=== PATIENT | male | born 1970 | race Caucasian/White ===

== ENCOUNTER → 2019-12-04 14:03 | Outpatient (CLI) | payer MEDICAID, SELFPAY ==
[2019-12-06 08:38] LABS: Covid-19 Nasal PCR Sendout UK Not Detected
== END ==
PROVIDERS: PCP Internal Medicine Hematology & Oncology; Visit Provider Nurse Practitioner Family
DX: Z03.818 Encounter for observation for suspected exposure to other biological agents ruled out (principal)
CPT/HCPCS: U0003

== ENCOUNTER 2022-03-07 13:01 | Emergency (ER) | payer MEDICAID, SELFPAY ==
[2022-03-07 13:45] VITALS: BP 116/80; PULSE 73; RESP 18; TEMP 36.6; O2SAT 96; BMI 21.2
--- NOTE | 2022-03-07 15:05 | CT_ITS ---
PROCEDURE INFORMATION: Exam: CT Neck With Contrast Exam date and time: 03/07/2022 4:39 PM Age: 51 years old Clinical indication: Other: Swelling in right side of neck; Additional info: Right neck swelling, history of oral and rectal cancer, currently has lung cancer TECHNIQUE: Imaging protocol: Computed tomography of the neck with contrast. Radiation optimization: All CT scans at this facility use at least one of these dose optimization techniques: automated exposure control; mA and/or kV adjustment per patient size (includes targeted exams where dose is matched to clinical indication); or iterative reconstruction. Contrast material: ISOVUE; Contrast volume: 75 ml; Contrast route: IV; COMPARISON: No relevant prior studies or reports available. FINDINGS: Tubes, catheters and devices: Tunneled right jugular central venous catheter appears in satisfactory position with the tip in the superior vena cava above the right atrium on the dry roller topogram. Mastoid air cells: The left mastoid is not as well pneumatized as right, partially sclerotic and partially opacified, this is likely on a chronic basis rather than acute disease; no air-fluid level seen. Paranasal sinuses: No acute findings in the visualized sinuses. No significant sinus opacification or air-fluid levels. Minimal ethmoid mucosal thickening. Pharynx: There is slight deep soft tissue swelling in the posterior right nasopharynx, with effacement of the right fossa of Rosenmuller compared with left, but no discrete mass lesion or fluid collection. Oropharynx is unremarkable. No tonsillar enlargement or organizing peritonsillar abscess. No mass or fluid collection seen at the floor of mouth in this patient with history of oral cancer. Hypopharynx is unremarkable. Larynx: The larynx and epiglottis appear normal. Prevertebral and retropharyngeal spaces: Unremarkable. Salivary glands: Parotid and submandibular glands are unremarkable. Thyroid: The thyroid gland is normal. Lymph nodes: Possibly necrotic or suppurative enlarged right cervical nodes as discussed in the soft tissue section. There is also a 9 x 8 mm borderline enlarged right submandibular lymph node on series 3, image 59. A 1.7 cm ovoid calcified nodule superficial to the C5 process in the posterior neck, likely sequela of old trauma or chronic calcified lymph node series 1002, image 34. Trachea: The trachea is normal. Lungs: 1.7 cm posterior right upper lobe pulmonary nodule with spiculated margins and slight central cavitation suspicious for malignancy, correlate for the known lung cancer versus metastasis. Mild cystic emphysematous changes in the anterior lung apices. Some scattered ground-glass opacities in the anterior right upper lobe and superior segment of the right lower lobe, nonspecific, this could be pneumonia or edema. Bones/joints: Mild cervical spine degenerative changes with disc narrowing, spondylosis, multilevel facet arthropathy greater on the left. No acute fracture or high-grade listhesis. There are no lytic skeletal lesions seen. Soft tissues: There is a rim enhancing low-density lesion of approximately 3.9 x 2 cm diameter on series 3, image 45, and 3.7 cm length on sagittal series 1002, image 23 posterior to the right angle of mandible, and deep to the right sternocleidomastoid muscle. There is a smaller similar lesion along the posteroinferior margin of this measuring 1.4 cm sagittal series 1002, image 24. There is some internal enhancement or dense reticulation within these, see coronal series 1001, image 33; no precontrast images were obtained for comparison. These are indeterminate for enlarged metastat
[2022-03-07 16:01] LABS: Basophils % 0.5 % (0.1-2.0); Eosinophils # 0.1 K/mm3 (0.0-0.4); Eosinophils % 1.8 % (0.1-12.0); Hematocrit 39.4 % (42.0-52.0); Hemoglobin 12.9 g/dL (14.1-18.0); Lymphocytes % 13.9 % (10-50); Mean Corpuscular HGB Conc 32.8 g/dL (31.8-35.4); Mean Corpuscular Hemoglobin 30.1 pg (27.0-31.2); Mean Corpuscular Volume 91.8 fl (80-94); Mean Platelet Volume 7.6 fl (7.4-10.4); Monocytes # 0.5 K/mm3 (0.1-1.0); Monocytes % 7.9 % (1.7-9.3); Neutrophils # 5.2 K/mm3 (1.8-7.8); Neutrophils % 75.9 % (37.0-80.0); Platelet Count 270 K/mm3 (142-424); Red Cell Distribution Width 13.3 % (11.5-17.5); White Blood Count 6.8 K/mm3 (4.8-10.8)
[2022-03-07 16:06] LABS: Chloride 100 mmol/L (98-107); Sodium 138 mmol/L (136-145)
[2022-03-07 16:07] LABS: Potassium 4.1 mmoL/L (3.5-5.1)
[2022-03-07 16:09] LABS: Alanine Aminotransferase 14 U/L (12-78); Alkaline Phosphatase 70 U/L (38-126); Aspartate Amino Transferase 37 U/L (17-59); Bilirubin,Total 0.2 mg/dl (0.2-1.3); Blood Urea Nitrogen 21 mg/dl (9-20); Creatinine Clearance Estimated 71 mL/min (50-200); Estimated Glomerular Filt Rate 70 ml/min (>60); GFR (African American) 85 ML/MIN (>60)
[2022-03-07 16:10] LABS: Albumin Level 4.3 g/dl (3.5-5.0); Albumin/Globulin Ratio 1.7 (1.1-1.8); Anion Gap 11.1 mEq/L (5-15); Calcium 9.4 mg/dl (8.4-10.2); Carbon Dioxide 31 mmol/L (22.0-30.0); Globulin 2.5 g/dL (1.3-3.2); Glucose 91 mg/dl (74-100); Total Protein,Serum 6.8 g/dl (6.3-8.2)
[2022-03-07 16:15] LABS: C-Reactive Protein 10.7 mg/L (0-4)
[2022-03-07 16:25] LABS: Erythrocyte Sedimentation Rate 26 mm/hr (0-20)
--- NOTE | 2022-03-07 17:34 | PC.NURSE ---
called [facility] per ER Doctor for a consult with Oncology about this patient. Information was given to [facility] and they advised they would call back.
--- NOTE | 2022-03-07 18:00 | [facility].EDGENADL ---
Discharge Plan Disposition Patient Disposition: Home, Self-Care Condition: Good Prescriptions Prescriptions: New ketorolac 10 mg tablet 10 mg PO Q8H 5 Days Qty: 15 0RF methocarbamol [Methocarbamol] 750 mg tablet 750 mg PO Q6 PRN (Reason: Muscle Spasm) Qty: 30 0RF Referrals Follow up/Referrals: Provider,Referral, [Primary Care Provider] - See instructions Clinical Impressions Clinical Impression: Mass of right side of neck, Back pain Instructions Patient Instructions: DI for Low Back Pain Discharge ED Provider: Elia Price General Adult HPI General Chief complaint: PAIN Stated complaint: Rt side of neck swollen, back pain, no accident Time Seen by Provider: 03/07/22 13:20 Mode of Arrival: Ambulatory Source of Information: Patient Limitations: No Limitations Description of Symptoms (Recalled from ER Triage Doc. by RN): c/o swelling in his left neck with some jaw pain that started today. Pt states that he had CA in that same area a few years ago. Denies any difficulty swallowing. c/o middle/side left back pain. Pt states that he has bilateral lung CA that he does no tx for. History of Present Illness HPI narrative: Patient is a 51-year-old male with a past medical history of right-sided tonsillar cancer, known lung cancer, known colorectal cancer. He follows with [facility] for his cancer treatment. He reports that today he started to get substantial swelling over his right jaw. He says that it similar to what happened when he had cancer a few years ago. He says that he had chemo and radiation around this area which helped to resolve all his symptoms. He says Dr. Pereira was his ENT surgeon. He denies any difficulty swallowing or shortness of breath. Denies any fever or chills but does state that he recently had some viral illness that he is just recovering from. He says that during this time as well he started to get intense left flank pain. He says it is worse with movement. Denies any numbness or tingling into his extremities. Denies any chest or abdominal pain. Not currently undergoing any therapy for his lung cancer. Related Data Previous Rx's Medication Instructions Recorded ketorolac 10 mg tablet 10 mg PO Q8H 5 days #15 tabs 03/07/22 methocarbamol 750 mg tablet 750 mg PO Q6 PRN Muscle Spasm #30 03/07/22 tabs Allergies Allergy/AdvReac Type Severity Reaction Status Date / Time No Known Allergies Allergy Verified 03/07/22 15:29 [facility] Disclaimer: The information contained in this section may have been updated after the patient was seen, as this information can be updated by other users. Social History Smoking Status: Current every day smoker alcohol intake: current current occupational status: employed Travel in the last 8 weeks: None ROS Obtained: Yes All systems reviewed & no additional complaints except as documented A 14 point review of system was obtained and otherwise negative except per HPI Physical Exam General General appearance: alert and in no apparent distress Head Head exam: atraumatic, normocephalic and normal inspection Eye Eye exam: Present normal appearance, PERRL and EOMI ENT ENT exam: Present normal exam, normal oropharynx, mucous membranes moist, TM's normal bilaterally, normal external ear exam and other (Substantial swelling to the right side of the neck at the angle of the right mandibular jaw into the overlying sternocleidomastoid musculature) Neck Neck exam: Present normal inspection, full ROM and trachea midline; Absent meningismus or lymphadenopathy Chest Chest inspection: Present normal inspection and symmetric chest wall rise; Absent tenderness Respiratory Respiratory exam: Present normal lung sounds bilaterally; Absent respiratory distress Cardiovascular Cardiovascular exam: Present regular rate and normal rhythm; Absent JVD Abdominal Exam Abdominal exam: Present soft and normal bowel sounds; Absent distention, te
[2022-03-07 18:48] VITALS: BP 127/83; PULSE 69; RESP 18; TEMP 36.6; O2SAT 98
== END 2022-03-07 18:50 | disposition home or self-care (01) ==
PROVIDERS: Emergency Provider Student in an Organized Health Care Education/Training Program
DX: R22.1 Localized swelling, mass and lump, neck (principal); M54.2 Cervicalgia; M54.50 Low back pain, unspecified; R68.84 Jaw pain; R10.32 Left lower quadrant pain; D64.9 Anemia, unspecified; M62.838 Other muscle spasm; F17.200 Nicotine dependence, unspecified, uncomplicated; Z85.038 Personal history of other malignant neoplasm of large intestine; Z85.118 Personal history of other malignant neoplasm of bronchus and lung; Z92.21 Personal history of antineoplastic chemotherapy; Z92.3 Personal history of irradiation
CPT/HCPCS: 70491; 80053; 85025; 85651; 86140; 99285; J1642; Q9967